=== PATIENT | female | born 2005 | race Caucasian/White ===

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

== ENCOUNTER → 2024-01-08 | Outpatient (REF) | payer BC | LOC: M SFHCWAGY 13:38 | PROVIDERS: ATTEND Nurse Practitioner Family | DX: N75.0 Cyst of Bartholin's gland (principal) ==

== ENCOUNTER → 2024-11-06 | Outpatient (REF) | payer BC | LOC: M SFHCWAGY 17:34 | PROVIDERS: ATTEND Nurse Practitioner Family | DX: Z12.4 Encounter for screening for malignant neoplasm of cervix (principal) ==

== ENCOUNTER → 2025-05-06 | Outpatient (CLI) | payer BC ==
[2025-05-06 19:18] LABS: Trichomonas vaginalis (AMP) NOT DETECTED (NEGATIVE)
[2025-05-06 19:42] LABS: GC DNA AMPLIFICATION NEGATIVE (NEGATIVE)
[2025-05-06 19:43] LABS: BASO # 0.1 10^3/uL (0.0-0.2); BASO % 0.6 % (0.0-1.0); EOS # 0.4 10^3/uL (0.0-0.5); EOS % 5.4 % (0.0-3.0); LYMPH # 1.9 10^3/uL (1.5-5.0); LYMPH % 22.7 % (24.0-44.0); MONO # 0.5 10^3/uL (0.0-0.8); MONO % 6.1 % (2.0-8.0); NEUTROPHILS # 5.3 10^3/uL (1.5-8.5); NEUTROPHILS % 64.8 % (36.0-66.0); PLATELET COUNT, AUTOMATED 409 10^3/uL (150-450)
[2025-05-06 20:05] LABS: IRON (FE) 86.0 UG/DL (50-170); PERCENT SATURATION 21.0 % (13.2-45.0)
[2025-05-06 20:07] LABS: THYROID PEROXIDASE ANTIBODY 236.0 U/ML (<60.0)
[2025-05-06 20:08] LABS: FREE T4 1.49 NG/DL (0.89-1.76); VITAMIN B12 LEVEL 578.0 PG/ML (211-911)
[2025-05-06 20:47] LABS: ESTIMATED AVERAGE GLUCOSE 94.0 MG/DL (60-110)
== END ==
LOC: M PLALAB 16:50
PROVIDERS: ATTEND Nurse Practitioner Family
DX: L65.9 Nonscarring hair loss, unspecified (principal)